=== PATIENT | male | born 1955 | race American Indian/Alaskan Native ===

== ENCOUNTER 2019-06-13 20:17 | Emergency (ER) | payer OTHER ==
--- NOTE | 2019-06-13 21:01 | Emergency Department Report ---
ED General Adult HPI - General Chief complaint: Hypoglycemia Stated complaint: HYPOGLYCEMIA Time Seen by Provider: 06/13/19 20:54 Source: EMS Mode of arrival: Stretcher Limitations: No Limitations - History of Present Illness Initial comments: Patient is a 63-year-old male that presents emergency room for low blood sugar. Patient states that he took his insulin this morning but has not eaten today. Patient states he takes 60 units of Humalog 70/30 twice a day. Patient states he felt really weak and his family called the ambulance. Ambulance arrived and gave him D50. Patient's blood sugar upon arrival to the ER was 75. Patient denies pain. Patient states he is feeling a little bit better. -: Sudden Severity scale (0 -10): 0 Consistency: now resolved Improves with: eating, rest Worsens with: movement Associated Symptoms: weakness - Related Data Allergies Allergy/AdvReac Type Severity Reaction Status Date / Time No Known Allergies Allergy Unverified 06/13/19 21:47 ED Review of Systems ROS: Stated complaint: HYPOGLYCEMIA Other details as noted in HPI Constitutional: weakness. denies: chills, fever Eyes: denies: eye pain, eye discharge, vision change ENT: denies: ear pain, throat pain Respiratory: denies: cough, shortness of breath, wheezing Cardiovascular: denies: chest pain, palpitations Endocrine: no symptoms reported Gastrointestinal: denies: abdominal pain, nausea, diarrhea Genitourinary: denies: urgency, dysuria Musculoskeletal: denies: back pain, joint swelling, arthralgia Skin: denies: rash, lesions Neurological: weakness. denies: headache, paresthesias Psychiatric: denies: anxiety, depression Hematological/Lymphatic: denies: easy bleeding, easy bruising ED Past Medical Hx - Past Medical History Previous Medical History?: Yes Hx Hypertension: Yes Hx Congestive Heart Failure: Yes Hx Diabetes: Yes Hx Liver Disease: No Hx Renal Disease: No Additional medical history: chronic pain. neuropathy. hld. pvd - Surgical History Past Surgical History?: No - Family History Family history: no significant - Social History Smoking Status: Never Smoker Substance Use Type: None ED Physical Exam - General Limitations: No Limitations General appearance: alert, in no apparent distress - Head Head exam: Present: atraumatic, normocephalic - Eye Eye exam: Present: normal appearance, PERRL Pupils: Present: normal accommodation - ENT ENT exam: Present: mucous membranes moist - Neck Neck exam: Present: normal inspection. Absent: tenderness, meningismus - Respiratory Respiratory exam: Present: normal lung sounds bilaterally. Absent: respiratory distress, wheezes, rales, rhonchi - Cardiovascular Cardiovascular Exam: Present: regular rate, normal rhythm. Absent: systolic murmur, diastolic murmur, rubs, gallop - GI/Abdominal GI/Abdominal exam: Present: soft, normal bowel sounds. Absent: distended, tenderness, guarding - Rectal Rectal exam: Present: deferred - Extremities Exam Extremities exam: Present: normal inspection - Back Exam Back exam: Present: normal inspection - Neurological Exam Neurological exam: Present: alert, oriented X3 - Psychiatric Psychiatric exam: Present: normal affect, normal mood - Skin Skin exam: Present: warm, dry, intact, normal color. Absent: rash ED Course Vital Signs 06/13/19 06/13/19 06/13/19 20:50 20:55 21:01 Temperature 99.1 F Pulse Rate 106 H 107 H Respiratory 18 19 Rate Blood Pressure 150/81 Blood Pressure 138/95 [right arm] O2 Sat by Pulse 98 97 99 Oximetry 06/13/19 06/13/19 06/13/19 21:15 21:30 21:45 Temperature Pulse Rate 102 H 100 H 111 H Respiratory 16 16 16 Rate Blood Pressure 150/81 170/84 183/101 Blood Pressure [right arm] O2 Sat by Pulse 99 99 100 Oximetry 06/13/19 06/13/19 06/13/19 22:00 22:15 22:30 Temperature Pulse Rate 105 H 101 H 103 H Respiratory 14 13 14 Rate Blood Pressure 147/81 145/74 152/82 Blood Pressure [right arm] O2 Sat by Pulse 98 98 97 Oximetry 06/13/19 06/13/19 22:45 23:00 Temperature Pulse Rate 103 H 103 H Respiratory 14 16 Rate Blood Pressure 167/88 164/89 Blood Pressure [right arm] O2 Sat by Pulse 99 99 Oximetry - Reevaluation(s) Reevaluation #1: Patient states he is feeling better. Patient ambulatory in the ER. We will check the patient's blood sugar 1 more time. 06/13/19 22:43 Reevaluation #2: Patient's blood sugar stabilizing. I discussed all results and clinical findings with patient. I discussed plan of care with patient. Patient agrees with plan of care. Patient is stable for discharge. Patient will be discharged home. Patient given discharge instructions. Patient voiced understanding of discharge instructions. 06/13/19 22:59 ED Medical Decision Making - Medical Decision Making Patient is a 63-year-old male that presents emergency room with complaints of hypoglycemia. Patient took his insulin 60 units this morning but has not eaten all day. Patient tolerated p.o. intake here. Patient was brought in by EMS and given D50 in route. Patient's blood sugar improved and stabilized. Patient stable for discharge. Patient discharged home. - Differential Diagnosis Hypoglycemia, missed meals, inadequate calorie intake for insulin dose Critical care attestation.: If time is entered above; I have spent that time in minutes in the direct care of this critically ill patient, excluding procedure time. ED Disposition Clinical Impression: Hypoglycemia due to insulin, Inadequate caloric intake Diabetes Qualifiers: Diabetes mellitus type: type 2 Diabetes mellitus termite technician insulin use: with termite technician use Diabetes mellitus complication status: with other specified complication Qualified Code(s): E11.69 - Type 2 diabetes mellitus with other specified complication Disposition: DC-01 TO HOME OR SELFCARE Is pt being admited?: No Does the pt Need Aspirin: No Condition: Stable Instructions: Insulin Aspart Protamine/Insulin Aspart (Injection), Diabetic Hypoglycemia (ED), Diabetes Mellitus Type 2 in Adults (ED) Additional Instructions: Patient to follow-up with primary care in 2 to 3 days. Patient to rest. Patient to increase water. Patient to take Tylenol or ibuprofen as needed for pain. Patient to take meds as directed. Patient to monitor blood sugar and keep a log. Patient to eat regularly. Patient to return to the ER if condition worsens, changes or new symptoms arise. Referrals: PRIMARY CARE,MD [Primary Care Provider] - 2-3 Days Time of Disposition: 22:50
[2019-06-13] MEDS ORDERED: HYDROmorphone 1 MG/1 ML INJ IV ONE (21:47)
[2019-06-13 23:16] VITALS: BP 164/89
== END 2019-06-13 23:16 | disposition home or self-care (01) ==
LOC: ED 20:17
DX: E11.649 Type 2 diabetes mellitus with hypoglycemia without coma (principal); E63.9 Nutritional deficiency, unspecified; I11.0 Hypertensive heart disease with heart failure; I50.9 Heart failure, unspecified
CPT/HCPCS: 82962; 96374; 99284; J1170